=== PATIENT | female | born 1930 | race Caucasian/White ===

== ENCOUNTER 2016-05-25 01:34 | Inpatient (IN) | payer MEDICARE, OTHER ==
[~2016-05-25] VITALS: Ht 165.1 cm; Wt 62.8 kg
[2016-05-25] VITALS (38 sets, daily range): BP systolic 77–190; BP diastolic 31–87; PULSE 31–105; RESP 10–26; TEMP 98.2; Ht 165.1 cm; Wt 62.8 kg
[2016-05-25] MEDS ORDERED: SOD CHLORIDE 0.9% 500 ML IV STA (01:37)
[2016-05-25] MEDS ORDERED: ONDANSETRON 4 MG INJ IV STA (02:15)
[2016-05-25] MEDS ORDERED: morphine 4 MG/ML VIAL IV STA (02:15)
[2016-05-25 02:30] LABS: EOSINOPHILS # 0.1 10^3/ul (0.0-0.5); INR 0.97; PROTIME 12.9 Sec (12.2-14.2); RED CELL DISTRIBUTION WIDTH 14.8 % (11.5-14.5); UNCORRECTED WBC 8.6 10^3/ul (4.8-10.8); WHITE BLOOD COUNT 8.6 10^3/ul (4.8-10.8)
[2016-05-25 02:31] LABS: ALBUMIN 3.4 g/dl (3.3-4.9); POTASSIUM 5.6 mmol/L (3.5-5.1)
[2016-05-25 02:33] LABS: CREATININE 1.26 mg/dl (0.44-1.00)
[2016-05-25 02:34] LABS: ALBUMIN/GLOBULIN RATIO 1.25; BASOPHIL # 0.1 10^3/ul (0.0-0.1); BASOPHILS % 0.9 % (0.0-2.0); BILIRUBIN,INDIRECT 0.1 mg/dl (0-1.1); BILIRUBIN,TOTAL 0.1 mg/dl (0.2-1.3); CONDITION 1; EOSINOPHILS % 1.5 % (0.0-7.0); HEMATOCRIT 34.6 % (37.0-47.0); HEMOGLOBIN 11.6 g/dl (12.0-16.0); LH ANALYZER COMMENTS 1; LYMPHOCYTES # 2.3 10^3/ul (0.8-2.9); LYMPHOCYTES % 26.8 % (15.0-51.0); MEAN CORPUSCULAR HEMOGLOBIN 32.2 pg (29.0-33.0); MEAN CORPUSCULAR HGB CONC 33.6 g/dl (32.0-37.0); MEAN CORPUSCULAR VOLUME 95.7 fl (82.0-101.0); MONOCYTE # 0.6 10^3/ul (0.3-0.9); MONOCYTES % 7.3 % (0.0-11.0); NEUTROPHIL # 5.5 10^3/ul (1.6-7.5); NEUTROPHILS % 63.5 % (39.0-77.0); PLATELET COUNT 241 10^3/UL (140-440); RED BLOOD COUNT 3.61 10^6/ul (4.20-5.40); TOTAL PROTEIN 6.1 g/dl (6.1-8.1)
[2016-05-25 02:35] LABS: CALCIUM 9.4 mg/dl (8.4-10.2)
--- NOTE | 2016-05-25 02:40 | RADRPT ---
PROCEDURE: XR Chest. CLINICAL INDICATION: Chest pain TECHNIQUE: Single AP portable chest COMPARISON: None. FINDINGS: The cardiomediastinal silhouette is within normal limits of size . Dual chamber left chest pacemaker in place. Elevation of the right hemidiaphragm. Atherosclerotic calcification of the aortic arch. Mild vascular congestion. .The lungs are otherwise clear without pleural effusion or focal consoli dation. No pneumothorax. The osseous structures and soft tissues are unremarkable. IMPRESSION: 1. Mild vascular congestion. No pleural effusion or focal consolidation. 2. Atherosclerotic calcification of the aorta. RPTAT:AAJJ Physician Win Date Time Electronically viewed and signed by Physician Win on 05/25/2016 02:39 FRANCIE/
[2016-05-25 02:46] LABS: TROPONIN-I 0.038 ng/ml (0.00-0.12)
[2016-05-25] MEDS ORDERED: ATROPINE 1 MG/10 ML SYRINGE ONE (03:00)
[2016-05-25] MEDS ORDERED: ATROPINE 0.4 MG INJ IV ONE (03:00)
[2016-05-25] MEDS ORDERED: DOPamine-D5W 1.6 MG/ML 250 ML ONE (03:13)
[2016-05-25] MEDS ORDERED: ACETAMINOPHEN 650 MG SUPP PR PRN (03:30)
[2016-05-25] MEDS ORDERED: DOPamine-D5W 1.6 MG/ML 250 ML IV SCH (03:30)
[2016-05-25] MEDS ORDERED: ATROPINE 0.4 MG INJ IV PRN (03:30)
[2016-05-25] MEDS ORDERED: ONDANSETRON 4 MG INJ IV PRN ×2 (03:30→13:30)
[2016-05-25] MEDS ORDERED: ATROPINE 1 MG/10 ML SYRINGE IV PRN (03:30)
[2016-05-25] MEDS ORDERED: ALBUTEROL 0.5% (NEB) 2.5 MG/0.5 ML AMP NEB PRN (03:30)
[2016-05-25] MEDS ORDERED: IPRATROPIUM (NEB) 0.5 MG/2.5 ML AMP NEB PRN (03:30)
--- NOTE | 2016-05-25 03:43 | ERA ---
ER Documentation Chief Complaint Date/Time DATE: 05/25/16 TIME: 03:41 Chief Complaint BRADYCARDIC, PACEMAKER, VENTRICULAR PACED. HPI This is an 85-year-old female who comes in with bradycardia. Patient felt dizzy but had no syncopal episode. No chest bone. No other current complaints. Patient herself is a very limited historian. History is per family. Patient is currently residing in a post acute rehab for a fracture. ROS All systems reviewed and are negative except as per history of present illness. Allergies Allergies: Coded Allergies: No Known Allergy (Unverified , 05/25/16) PMhx/Soc History of Surgery: Yes (HIP REPLACEMENT) Anesthesia Reaction: No Hx Neurological Disorder: No Hx Respiratory Disorders: No Hx Cardiac Disorders: Yes (HTN) Hx Psychiatric Problems: No Hx Miscellaneous Medical Probl: Yes (ARTHRITIS, DIABETES MELLITUS) Hx Alcohol Use: No Hx Substance Use: No Hx Tobacco Use: No Smoking Status: Unknown if ever smoked Physical Exam Vitals Vital Signs Date Time Temp Pulse Resp B/P Pulse Ox O2 Delivery O2 Flow Rate FiO2 05/25/16 03:13 98.2 32 13 102/53 100 Nasal Cannula 05/25/16 01:42 Nasal Cannula 1 05/25/16 01:42 98.2 49 13 111/85 100 Physical Exam Const: [] Head: Atraumatic Eyes: Normal Conjunctiva ENT: Normal External Ears, Nose and Mouth. Neck: Full range of motion..~ No meningismus. Resp: Clear to auscultation bilaterally Cardio: Regular rate and rhythm, no murmurs Abd: Soft, non tender, non distended. Normal bowel sounds Skin: No petechiae or rashes Back: No midline or flank tenderness Ext: No cyanosis, or edema Neur: Awake and alert Psych: Normal Mood and Affect Result Diagram: 05/25/1614605/25/16146 Results 24 hrs Laboratory Tests Test 05/25/16 01:47 Activated Partial Thromboplast Time 25.0Sec Alanine Aminotransferase (ALT/SGPT) 23IU/L Albumin 3.4g/dl Albumin/Globulin Ratio 1.25 Alkaline Phosphatase 45IU/L Anion Gap 18 Aspartate Amino Transf (AST/SGOT) 16IU/L B-Type Natriuretic Peptide 2680PG/ML Basophils # 0.110^3/ul Basophils % 0.9% Blood Morphology Comment Blood Urea Nitrogen 39mg/dl Calcium Level 9.4mg/dl Carbon Dioxide Level 23mmol/L Chloride Level 99mmol/L Creatinine 1.26mg/dl Direct Bilirubin 0.00mg/dl Eosinophils # 0.110^3/ul Eosinophils % 1.5% Globulin 2.70g/dl Glucose Level 218mg/dl Hematocrit 34.6% Hemoglobin 11.6g/dl INR International Normalized Ratio 0.97 Indirect Bilirubin 0.1mg/dl Lymphocytes # 2.310^3/ul Lymphocytes % 26.8% Mean Corpuscular Hemoglobin 32.2pg Mean Corpuscular Hemoglobin Concent 33.6g/dl Mean Corpuscular Volume 95.7fl Mean Platelet Volume 9.0fl Monocytes # 0.610^3/ul Monocytes % 7.3% Neutrophils # 5.510^3/ul Neutrophils % 63.5% Nucleated Red Blood Cells # 0.010^3/ul Nucleated Red Blood Cells % 0.0/100WBC Platelet Count 18509^3/UL Potassium Level 5.6mmol/L Prothrombin Time 12.9Sec Prothrombin Time Ratio 1.0 Red Blood Count 3.6110^6/ul Red Cell Distribution Width 14.8% Sodium Level 134mmol/L Total Bilirubin 0.1mg/dl Total Protein 6.1g/dl Troponin I 0.038ng/ml White Blood Count 8.610^3/ul Current Medications Medications (Trade) Dose Ordered Sig/Zara Route PRN Reason Start Time Stop Time Status Last Admin Dose Admin Sodium Chloride (NS) 500 ml @ 500 mls/hr Q1H STAT IV 05/25/16 01:37 05/25/16 02:36 DC 05/25/16 02:01 Morphine Sulfate (morphine) 4 mg ONCE STAT IV 05/25/16 02:15 05/25/16 02:16 DC 05/25/16 02:22 Ondansetron HCl (Zofran Inj) 4 mg ONCE STAT IV 05/25/16 02:15 05/25/16 02:16 DC 05/25/16 02:21 Atropine Sulfate (Atropine) 0.4 mg ONCE ONCE IV 05/25/16 03:00 05/25/16 03:01 DC 05/25/16 03:01 Atropine Sulfate 1 mg 1 mg STK-MED ONCE .ROUTE 05/25/16 03:00 05/25/16 03:01 DC Dopamine HCl/ Dextrose 250 ml @ 4.432 mls/ hr TITRATE IV 05/25/16 03:30 Dopamine HCl/ Dextrose 250 ml @ ud STK-MED ONCE .ROUTE 05/25/16 03:13 05/25/16 03:14 DC Dextrose/Sodium Chloride (D5-1/2ns) 1,000 ml @ 75 mls/hr [id number] IV 05/25/16 03:16 Ondansetron HCl (Zofran Inj) 4 mg Q6H PRN IV NAUSEA AND/OR VOMITING 05/25/16 03:30 Albuterol (Proventil 0.5% (Neb)) 2.5 mg Q2H RESP THERAPY PRN NEB SHORTNESS OF BREATH 05/25/16 03:30 Ipratropium [place] (Atrovent 0.02% (Neb)) 0.5 mg Q2H RESP THERAPY PRN NEB SHORTNESS OF BREATH 05/25/16 03:30 Acetaminophen (Tylenol Supp) 650 mg Q4H PRN [place] PAIN LEVEL 1-3 OR FEVER 05/25/16 03:30 Famotidine (Pepcid Iv) 20 mg Q12 IV 05/25/16 09:00 UNV Heparin Sodium (Porcine) (Heparin (5000 Units/0.5 ml)) 5,000 unit Q12 SC 05/25/16 09:00 Atropine Sulfate (Atropine) 0.4 mg ONCE PRN IV bradycardia 05/25/16 03:30 UNV Famotidine (Pepcid Iv) 20 mg DAILY IV 05/25/16 09:00 Atropine Sulfate (Atropine (Syringe)) 0.4 mg ONCE PRN IV bradycardia 05/25/16 03:30 05/25/16 09:00 Procedures/MDM EKG: Rate/Rhythm: Ventricularly paced bradycardia at 30 bpm QRS, ST, T-waves: No changes consistent w/ acute ischemia Impression: Ventricularly paced bradycardia Chest X-ray 1V Interpreted by me: Soft Tissue: No acute abnormalities Bones: No acute abnormalities Mediastinum/Cardiac Silhouette/Lungs: No acute abnormalities Medical decision makin-year-old female with symptomatic bradycardia. Patient given dose of aspirin with good response. At this point patient placed on peripheral dopamine drip. Patient will be admitted to intensive care to hospitalist. Dr. Vahdat has been consulted for cardiology. Unfortunately family does not know what kind the pacemaker was placed and the patient and they do not have the pacemaker card or information regarding the pacemaker. At this time we are trying to procure records from [facility]. Critical Care: Time: 45 minutes Treatments/Evaluations: Close monitoring and treatment of unstable vital signs, cardiorespiratory, and neurologic status, while maintaining tight balance of fluid, respiratory, and cardiac interventions. Departure Diagnosis: Primary Impression: Bradycardia Condition: Critical JAIME SIDDQIUI May 25, 2016 03:43
[2016-05-25] MEDS: DEXTROSE 5%-0.45% NACL 1,000 ML IV SCH ×2 (05:28→16:36)
--- NOTE | 2016-05-25 06:58 | HP ---
DATE OF ADMISSION: 05/25/2016 CHIEF COMPLAINT: Bradycardia. HISTORY OF PRESENT ILLNESS: The patient is an 85-year-old female with a history of diabetes, hypert ension, arthritis, dyslipidemia, hypothyroidism, dementia, and pacemaker who was sent from [facility] for bradycardia. When EMS arrived, and EKG was done which shows a ventricular paced rhythm with a rate of 30. When she arrived to the ER, her heart rate was documented to be 49 but pavon s been as low as 32. The rest of her vitals were within normal limits including her blood pressure which has been around 110/80s. The patient is mainly Farsi-speaking, and currently she is sleepy bu t arousable and appears somehow weak but not in any acute distress. In the ER, she was given normal saline IV fluid, 0.4 mg of atropine, and has been started on dopamine. Dr. Nolasco, the cardiologis t, has been consulted by the ER physician. She is awaiting ICU admission. Unfortunately the only k nown information about her pacemaker is the fact that it is dual-chamber based on the chest x-ray. Otherwise, I am not able to see any additional information from the chest x-ray. Also, the patient is not able to provide additional information about pacemaker. REVIEW OF SYSTEMS: Negative except as mentioned in HPI. PAST MEDICAL HISTORY: As per HPI. PAST SURGICAL HISTORY: As per HPI. SOCIAL HISTORY: No reported history of tobacco, alcohol, or illicit drug use. ALLERGIES: NO KNOWN DRUG ALLERGIES. MEDICATIONS: At [facility] is as follows 1. Aspirin. 2. Donepezil. 3. Lexapro. 4. Metformin. 5. Oxybutynin. 6. Zocor. 7. Synthroid 8. Losartan. PHYSICAL EXAMINATION: VITAL SIGNS: Blood pressure 102/53, heart rate 32, respiratory rate 13, temperature 98.2, oxygen sa turation 100%. GENERAL: Sleepy and somehow weak appearing but arousable, in no acute distress. HEENT: No obvious head deformity. Pupils are reactive to light. CARDIOVASCULAR: Bradycardic with regular rhythm. LUNGS: Clear anteriorly. ABDOMEN: Soft. No grimaces noted on palpation. Positive bowel sounds. EXTREMITIES: No edema. LABORATORY: Sodium 134, potassium 5.6, BUN 39, creatinine 1.26, hemoglobin 11.6. BNP 2680. First troponin 0.038. IMAGING: Chest x-ray shows mild vascular congestion, dual-chamber left chest pacemaker in place. N o pleural effusion or focal consolidation. IMPRESSION 1. Symptomatic bradycardia. 2. History of hypertension. 3. History of type 2 diabetes. 4. History of dyslipidemia. 5. History of hypothyroidism. 6. History of dementia. 7. Hyperkalemia. 8. Mild hyponatremia. 9. Congestive heart failure. 10. Elevated creatinine, likely acute on chronic kidney disease. PLAN: Admit to ICU. We will continue dopamine. We will provide atropine as needed. She will be e valuated by cardiology. We will correct electrolytes as needed. We will monitor her blood pressure closely. External pacer pads to be in place. We will check her thyroid profile, A1c, and fasting lipids in the morning. Further workup and management per clinical course. Total critical time is about 40 minutes. Dictated By: JAIME WALLIS/GUANAKITO Conf#: [id number] DID#: [id number]
[2016-05-25 07:09] LABS: BASOPHILS % 0.4 % (0.0-2.0); EOSINOPHILS % 0.2 % (0.0-7.0); HEMATOCRIT 34.9 % (37.0-47.0); HEMOGLOBIN 11.7 g/dl (12.0-16.0); LYMPHOCYTES # 1.5 10^3/ul (0.8-2.9); LYMPHOCYTES % 12.6 % (15.0-51.0); MEAN CORPUSCULAR HEMOGLOBIN 32.2 pg (29.0-33.0); MEAN CORPUSCULAR HGB CONC 33.5 g/dl (32.0-37.0); MEAN PLATELET VOLUME 8.5 fl (7.4-10.4); MONOCYTE # 0.4 10^3/ul (0.3-0.9); MONOCYTES % 3.3 % (0.0-11.0); NEUTROPHIL # 10.3 10^3/ul (1.6-7.5); NEUTROPHILS % 83.5 % (39.0-77.0); PLATELET COUNT 268 10^3/UL (140-440); RED BLOOD COUNT 3.64 10^6/ul (4.20-5.40); RED CELL DISTRIBUTION WIDTH 14.8 % (11.5-14.5); UNCORRECTED WBC 12.3 10^3/ul (4.8-10.8); WHITE BLOOD COUNT 12.3 10^3/ul (4.8-10.8)
[2016-05-25 07:21] LABS: CONDITION 1; LH ANALYZER COMMENTS 1
[2016-05-25 07:41] LABS: CREATININE 1.22 mg/dl (0.44-1.00)
[2016-05-25 07:42] LABS: CALCIUM 8.7 mg/dl (8.4-10.2)
[2016-05-25 07:46] LABS: POTASSIUM 6.2 mmol/L (3.5-5.1)
[2016-05-25] MEDS ORDERED: NA POLYST SULFON 15 GM/60 ML BTL PO ONE (08:00)
[2016-05-25] MEDS ORDERED: NA POLYST SULFON 15 GM/60 ML BTL ONE (08:11)
[2016-05-25] MEDS ORDERED: INSULIN REGULAR, HUMAN 100 UNIT/1 ML 3ML VIAL IV ONE (08:30)
[2016-05-25] MEDS ORDERED: GLUCOSE GEL 15 GRAM TUBE PO PRN ×2 (09:00)
[2016-05-25] MEDS ORDERED: DEXTROSE 50% 50 ML SYRINGE IV PRN ×2 (09:00)
[2016-05-25] MEDS ORDERED: HEPARIN 5,000 UNIT/0.5 ML SYG SC SCH (09:00)
[2016-05-25] MEDS ORDERED: FAMOTIDINE 20 MG INJ IV SCH (09:00)
[2016-05-25] MEDS ORDERED: GLUCOSE GEL 15 GRAM TUBE BUCCAL PRN (09:00)
[2016-05-25] MEDS ORDERED: GLUCAGON 1 MG INJ IM PRN (09:00)
[2016-05-25] MEDS ORDERED: CALCIUM GLUCONATE 10% 2 GM in SOD CHLORIDE 0.9% 100 ML IVPB ONE (09:30)
[2016-05-25] MEDS: FAMOTIDINE 20 MG INJ IV SCH (09:30)
[2016-05-25] MEDS ORDERED: NA BICARBONATE 8.4% 50 ML SYG IV ONE (10:30)
[2016-05-25] MEDS ORDERED: NA BICARBONATE 8.4% 50 ML SYG ONE (10:48)
[2016-05-25] MEDS ORDERED: LIDOCAINE 1% (STERILE-PAK) 30 ML INJ ONE (11:58)
[2016-05-25] MEDS ORDERED: LIDOCAINE 1%/EPI 30 ML INJ ONE (11:58)
[2016-05-25] MEDS ORDERED: POLYMYXIN/BACITRACIN 1L IRRIG ONE (11:59)
--- NOTE | 2016-05-25 12:17 | RADRPT ---
Echocardiogram Report Patient Name: LEONIDES MARCOS Gender: Female Date: 1930 Study Date: 25-May-2016 Public Relations Representative: Remedios Ramirez RDCS Location: 108 Ref. Physician: JAIME MENSAH Quality: Technically Difficult Study Procedures: Transthoracic echocardiogram with complete 2D, M-Mode, and doppler examination. Indications: Bradycardia. 2D/M Mode Doppler Measurement Value Normal Ranges Measurement Value Normal Ranges LVIDd 2D 4.2 3.5 - 5.6 cm AV Peak Musa 2.0 m/sec LVIDs 2D 2.3 2.1 - 4.1 cm AV Peak PG 16.0 mmHg LVPWd 2D 0.8 0.6 - 1.1 cm LVOT Peak Musa 1.2 m/sec IVSd 2D 0.7 0.6 - 1.1 cm LVOT Peak PG 5.7 mmHg AoR Diam 2D 2.7 2.0 - 3.7 cm MV E Peak Musa 1.5 m/sec EDV 2D 80.8 cm3 MV A Peak Musa 0.6 m/sec ESV 2D 12.5 cm3 MV E/A 2.6 LA Dimen 2D 3.9 2.3 - 4.0 cm MV Decel Time 138 msec MV Decel Ray 11 MV E/A 2.6 TR Peak Musa 2.6 m/sec TR Peak PG 27.4 mmHg RVSP 42.0 mmHg Findings Left Ventricle: Normal left ventricular systolic function. Normal left ventricular cavity size. Normal left ventricular wall thickness. Ejection fraction is visually estimated at 65 %. Right Ventricle: Pacemaker right heart. Left Atrium: The left atrium is normal in size. Right Atrium: The right atrium is normal in size. Linear artifact in right atrium suggestive of pacer lead. Mitral Valve: Mitral valve leaflets appear mildly thickened. Mild mitral annular calcification. Mild mitral valve regurgitation. Aortic Valve: Aortic sclerosis without stenosis. Aortic cusps appear mildly calcified. Tricuspid Valve: Estimated peak PA systolic pressure 42 mmHg. There is mild to moderate tricuspid regurgitation. Pulmonic Valve: Normal pulmonic valve appearance. Pericardium: Normal pericardium with no significant pericardial effusion. Aorta: Normal aortic root. IVC: Normal size and no respiratory collapse consistent with elevated right atrial pressure. Conclusions 1.Normal left ventricular systolic function. Normal left ventricular cavity size. Normal left ventricular wall thickness. Ejection fraction is visually estimated at 65 %. 2.The right atrium is normal in size. Linear artifact in right atrium suggestive of pacer lead. 3.Mitral valve leaflets appear mildly thickened. Mild mitral annular calcification. Mild mitral valve regurgitation. 4.Aortic sclerosis without stenosis. Aortic cusps appear mildly calcified. 5.Estimated peak PA systolic pressure 42 mmHg. There is mild to moderate tricuspid regurgitation. Electronically Signed By: Quinn Nolasco 25-May-2016 12:17:19 -0800 Patient Name: LEONIDES MARCSO Study Date: 25-May-[id number]
[2016-05-25] MEDS ORDERED: PROPOFOL 20 ML ONE (12:51)
--- NOTE | 2016-05-25 13:23 | CONS ---
DATE OF ADMISSION: 05/25/2016 DATE OF CONSULTATION: 05/25/[address] López. REASON FOR CONSULTATION: Bradycardia. CHIEF COMPLAINT: Bradycardia. HISTORY OF PRESENT ILLNESS: Thank you for this referral. History obtained from the patient, sandy gu with her daughter, review of the chart, discussion with multiple physicians, including from the emergency room and staff. This is a pleasant 85-year-old female with history of what appears to be complete heart block status permanent pacemaker, many, many years ago. Last change apparently was 4 to 5 years ago, has not had a regular followup apparently for her pacemaker. The patient currentl y is in rehabilitation ____ marked bradycardia. She was noted to be as low as 30. Pacemaker was no t capturing appropriately. Atropine was given, and apparently heart rate improved. She has been tr ansferred to ICU. Pacemaker was interrogated this morning, was personally reviewed. Pacemaker appe ars to be completely at this point with no communication and no interrogation can be done, even . The patient denies any chest pain or pressure. Has poor memory and also poor hearing. There is no kristen syncope noted. The patient has been weak and has been having bouts of bradycardia as above . PAST MEDICAL HISTORY: History of hypertension, diabetes, dyslipidemia, hypothyroidism, dementia, co mplete heart block, status post permanent pacemaker with a [employer] pacemaker. SOCIAL HISTORY: The patient with no tobacco or alcohol or drug abuse. Lives in rehabilitation now. ALLERGIES: NO REPORTED ALLERGIES. MEDICATIONS: At home or at [facility] include: 1. Aspirin. 2. Donepezil. 3. Lexapro. 4. Metformin. 5. Oxybutynin. 6. Zocor. 7. Synthroid. 8. Losartan. FAMILY HISTORY: No reported early coronary artery disease. REVIEW OF SYSTEMS: As above-mentioned, patient does not walk much and has not had good hearing. PHYSICAL EXAMINATION: VITAL SIGNS: Temperature 96.8, heart rate of 38, blood pressure 150/30, respiratory rate of 15. HEENT: Normocephalic, atraumatic. Pupils are equal. CHEST: Status post left-sided permanent pacemaker. CARDIOVASCULAR: Bradycardic, systolic murmur. PULMONARY: With no wheezes anteriorly. GASTROINTESTINAL: Soft, nontender. EXTREMITIES: No significant edema. NEUROLOGIC: Awake, responds appropriately to person and place. PSYCHIATRIC: Appears to be calm and pleasant. LABORATORY: WBC of 12.3, hemoglobin 11.7, platelets 268. Sodium 132, potassium 5.6 and is followed by 6.2, BUN of 40, creatinine 1.22, glucose of 376. TSH is 0.37 and free T4 of 1.62. Chest x-ray was personally reviewed, which showed status post dual chamber permanent pacing, a mild vascular con gestion. Echocardiogram was personally reviewed, which showed normal LV size and systolic function. DIAGNOSTIC DATA: EKG was personally reviewed, showed normal sinus rhythm with complete AV dissociat ion, ventricular demand pacemaker and a very slow rate. ASSESSMENT AND PLAN: 1. Complete heart block with marked bradycardia. 2. Status post permanent pacemaker with either pacemaker malfunction, loss of capture or complete d epletion of the battery or both. 3. Hypertension. 4. Diabetes. 5. History of hypothyroidism 6. History of dementia. RECOMMENDATIONS: Patient has been placed on dopamine with no significant response in the heart rate . Blood pressure currently has been stable. I cannot communicate with the pacemaker because the ttery is so depleted, does not communicate with the device outside. The patient will be taken to e operating room for pacemaker generator change as long as the leads are working or if the leads are not working, we have to perform the new pacemaker placement. ____was discussed with the patient an d her daughter including the risks of renal infection, vascular complication, bleeding complication, pneumothorax, hemothorax, RI, stroke, arrhythmia, anesthesia related complications, etc., discussed with them. They have consented to procedure. Patient will be taken to the OR as soon as the team is ready. Dictated By: RAQUEL PRATT MD AV/GUANAKITO Conf#: [id number] DID#: [id number] CC: JAIME LÓPEZ MD;*EndCC*
[2016-05-25] MEDS ORDERED: FENTAnyl 50 MCG/ML VIAL IV PRN (13:30)
[2016-05-25] MEDS ORDERED: morphine 2 MG INJ IV PRN (14:00)
[2016-05-25] MEDS ORDERED: ACETAMINOPHEN 325 MG TAB PO PRN (14:00)
--- NOTE | 2016-05-25 14:07 | SP ---
DATE OF PROCEDURE: 05/25/2016 NAME OF PROCEDURE: Pacemaker generator change. FUNCTIONAL CONSULTANT: Raquel Nolasco MD CLINICAL INDICATIONS: This is an 85-year-old female with complete heart block status post permanent pacemaker, who was noted to have complete depletion of the pacemaker battery end of life. The nae ent was bradycardic and was recommended to undergo urgent pacemaker generator change. DESCRIPTION OF PROCEDURE: Written informed consent was discussed with the patient and the family, t he patient taken to the OR and placed in supine position. Left chest was prepped and draped in ster ile fashion. The patient underwent anesthesia by anesthesiologist. Left chest area was anesthetize d with 1% lidocaine with epinephrine. A 3 cm incision was made over the previous scar. Blunt disse ction was carried out. The pacemaker was identified, isolated and removed. The RV lead was removed and quickly placed in the new device. The pacemaker lead was interrogated through the device, it a ppeared to be functioning appropriately. Our A-lead was discontinued and a threshold was checked. It was connected to the new device. The pocket was irrigated with antibiotic solution. The device was placed into the pocket and the irrigation was done again with antibiotic solution. The wound wa s closed with 1 layer of 2-0 Vicryl, 2 layers of 3-0 Vicryl, Steri-Strips were applied. Pressure wa s applied. Patient was without complication. The patient is transferred to recovery in stable cond ition. COMPLICATIONS: None. Following information of device: The pacemaker itself is a [employer] [address] 2240 Pacemaker. RA-lead is an Oscor lead. Implant date apparently is February,. RV lead is Oscor lead, implanted in 1994. P-wave amplitude is 1.2, threshold 1.5 at 0.4 msec, impedance of 430. RV amplitude could not be checked because patient is dependent on it. Threshold is 1 at 4 millisecond pulse width, impedance of 390. The device was set at lower rate of 60, upper rate of 110. CONCLUSION: Successful pacemaker generator change. Dictated By: RAQUEL NOLASCO MD AV/GUANAKITO Conf#: [id number] DID#: [id number] CC: JAIME MENSAH MD;*EndCC*
--- NOTE | 2016-05-25 14:48 | RADRPT ---
Vent Rate: 80 bpm RR Interval: 0 msec RI Interval: 0 msec QRS Duration: 164 msec QT Interval: 490 msec QTC Interval: 565 msec P-R-T [place]: 63 - -74 - 88 degrees Electronic ventricular pacemaker Electronically Signed By: Chu Hansen [id number]
[2016-05-25] MEDS: CEFAZOLIN 1 GM/50 ML (PMX) 50 ML IVPB SCH ×2 (14:56→21:26)
[2016-05-25] MEDS: INSULIN ASPART [NOVOLOG] 3 ML PEN SC SCH ×3 (17:34→21:22)
[2016-05-25] MEDS ORDERED: INSULIN GLARGINE [LANtus] 3 ML PEN SC SCH (20:00)
[2016-05-25] MEDS ORDERED: INSULIN GLARGINE [LANtus] 3 ML PEN SC ONE (21:30)
[2016-05-26] VITALS (12 sets, daily range): BP systolic 93–156; BP diastolic 39–87; PULSE 67–97; RESP 15–21
[2016-05-26] MEDS ORDERED: ACCUCHECK XX SCH (02:00)
[2016-05-26] MEDS: CEFAZOLIN 1 GM/50 ML (PMX) 50 ML IVPB SCH (06:32)
[2016-05-26 07:10] LABS: BASOPHILS % 0.2 % (0.0-2.0); EOSINOPHILS % 0.2 % (0.0-7.0); HEMATOCRIT 27.7 % (37.0-47.0); HEMOGLOBIN 9.5 g/dl (12.0-16.0); LYMPHOCYTES # 1.4 10^3/ul (0.8-2.9); LYMPHOCYTES % 17.4 % (15.0-51.0); MEAN CORPUSCULAR HEMOGLOBIN 32.6 pg (29.0-33.0); MEAN CORPUSCULAR HGB CONC 34.1 g/dl (32.0-37.0); MEAN CORPUSCULAR VOLUME 95.5 fl (82.0-101.0); MEAN PLATELET VOLUME 8.1 fl (7.4-10.4); MONOCYTE # 0.7 10^3/ul (0.3-0.9); MONOCYTES % 8.3 % (0.0-11.0); NEUTROPHILS % 73.9 % (39.0-77.0); PLATELET COUNT 211 10^3/UL (140-440); RED CELL DISTRIBUTION WIDTH 14.7 % (11.5-14.5); UNCORRECTED WBC 8.1 10^3/ul (4.8-10.8); WHITE BLOOD COUNT 8.1 10^3/ul (4.8-10.8)
[2016-05-26 07:15] LABS: POTASSIUM 4.1 mmol/L (3.5-5.1)
[2016-05-26 07:17] LABS: CREATININE 0.73 mg/dl (0.44-1.00)
[2016-05-26 07:18] LABS: CALCIUM 9.1 mg/dl (8.4-10.2); MAGNESIUM 1.7 mg/dl (1.7-2.5)
[2016-05-26 07:25] LABS: CONDITION 1; LH ANALYZER COMMENTS 1
[2016-05-26] MEDS: INSULIN ASPART [NOVOLOG] 3 ML PEN SC SCH ×4 (07:55→12:15)
[2016-05-26] MEDS ORDERED: INSULIN GLARGINE [LANtus] 3 ML PEN SC SCH ×2 (08:00→20:00)
[2016-05-26] MEDS: FAMOTIDINE 20 MG INJ IV SCH (08:27)
--- NOTE | 2016-05-26 08:50 | PN ---
DATE: 05/26/2016 CARDIOLOGY FOLLOWUP SUBJECTIVE: The patient underwent successful pacemaker generator change. Overnight has been pacing almost 100%. The patient is still confused. Had taken off her Steri-Strips from her pacer site. Denies any pain to me, but again, as mentioned, she is confused. MEDICATIONS: Reviewed. PHYSICAL EXAMINATION: VITAL SIGNS: Temperature 99.1, heart rate of 77, blood pressure 147/65, respiratory rate of 20, sat urating 98%. HEENT: Normocephalic, atraumatic. Pupils are equal. CARDIOVASCULAR: Regular rate and rhythm, systolic murmur. PULMONARY: No wheezes, no rhonchi. GASTROINTESTINAL: Soft, nontender. CHEST: Status post permanent pacemaker. No bleeding, no hematoma. EXTREMITIES: Trivial edema. NEUROLOGIC: Awake and alert, oriented to person only. PSYCHIATRIC: Appears to be agitated and anxious. LABORATORY: Sodium 139, potassium 4.1, BUN of 29, creatinine 0.73, glucose of 98. WBC of 8.1, hemo globin of 9.5, platelets of 211. ASSESSMENT AND PLAN: 1. Complete heart block. 2. Permanent pacemaker end of life, status post permanent pacemaker generator change. 3. Hypertension . 4. Severe hyperkalemia, improved. 5. Encephalopathy and dementia. 6. Diabetes. 7. History of thyroid disorder. RECOMMENDATIONS: Steri-Strip was applied to the pacemaker again. Keep the wound clean and dry. Th e patient to follow with me in about 1 to 2 weeks for wound check and pacemaker check. Give the pat ient empiric antibiotic for the next 3 days with Keflex. Dictated By: RAQUEL PRATT MD AV/NTS Conf#: [id number] DID#: [id number] CC: JAIME MENSAH MD;*EndCC*
[2016-05-26] MEDS: CEPHALEXIN 500 MG CAP PO SCH ×2 (10:54→14:43)
[2016-05-26] MEDS ORDERED: CEPH500C PO (11:13)
--- NOTE | 2016-05-26 17:16 | DS ---
DATE OF ADMISSION: 05/25/2016 DATE OF DISCHARGE: 05/26/2016 DISCHARGE DIAGNOSES: 1. Complete heart block with history of permanent pacemaker with pacemaker generator malfunction st atus post successful pacemaker generator change. The patient is cleared for discharge per cardiolog y. 2. Debility secondary to dementia and spinal compression fractures. The patient is being discharge d to continue rehabilitation at previous rehab facility. 3. Hypertension. Continue home meds. 4. Diabetes. Continue home medications. HOSPITAL COURSE: The patient is an 85-year-old female with a history of diabetes, hypertension, art hritis, dyslipidemia, hypothyroidism, and dementia as well as lumbar compression fractures with ez lity and difficulty ambulating. The patient resides at a rehab facility. The patient has a history of pacemaker placement secondary to heart block and comes in with bradycardia. The patient was see n by building contractor, Dr. Nolasco. The patient had a pacemaker generator malfunction, and the pacemaker generator was changed. The patient was doing well after the generator change. The patient was chidi ared for discharge by cardiology with recommendations to give Keflex for several days for infection prophylaxis. On the day of discharge, the patient's vitals, labs, and physical exam were stable. S he had no acute complaints. Her questions were answered. The patient once again was cleared for ravi farooq per cardiology. CONDITION ON DISCHARGE: Stable. DISPOSITION: To rehabilitation. MEDICATIONS: The patient is to continue usual home medications. The patient was given a prescripti on for Keflex 500 mg p.o. q. 8 hours for 3 days. FOLLOWUP: She is to follow up with her PCP in 1 to 2 weeks and with her other physicians as sched ed. Greater than 30 minutes was spent coordinating discharge of patient. Dictated By: DAKOTA MARQUEZ MD BS/NTS Conf#: [id number] DID#: [id number]
== END 2016-05-26 17:41 | DRG 259 ==
LOC: EDSEX 01:34 → E/R 01:34 → ICU 03:23 → TEL 04:19
PROVIDERS: ADMIT Internal Medicine; ATTEND Internal Medicine
PROC: 0JH606Z Insertion of Pacemaker, Dual Chamber into Chest Subcutaneous Tissue and Fascia, Open Approach (ICD-10-PCS; 2016-05-25)
PROC: 0JPT0PZ Removal of Cardiac Rhythm Related Device from Trunk Subcutaneous Tissue and Fascia, Open Approach (ICD-10-PCS; principal; 2016-05-25 12:00)
DX: I44.2 Atrioventricular block, complete (principal); T82.111A Breakdown (mechanical) of cardiac pulse generator (battery), initial encounter; F03.90 Unspecified dementia, unspecified severity, without behavioral disturbance, psychotic disturbance, mood disturbance, and anxiety; E11.9 Type 2 diabetes mellitus without complications; I10 Essential (primary) hypertension; M48.57XS Collapsed vertebra, not elsewhere classified, lumbosacral region, sequela of fracture; Z79.84 Long term (current) use of oral hypoglycemic drugs
CPT/HCPCS: 36415; 71010; 80048; 80053; 82962; 83036; 83735; 83880; 84132; 84439; 84443; 84484; 85025; 85610; 85730; 87081; 88300; 93005; 93306; 96361; 96374; 96375; J0461; J0610; J0690; J1265; J1815; J2270; J2405; J7040; J7042

== ENCOUNTER 2018-11-26 08:50 | Inpatient (IN) | payer MEDICARE, OTHER ==
[~2018-11-26] VITALS: Ht 157.5 cm; Wt 58.0 kg
[~2018-11-26 08:50] MED LIST: ACET-2047 PO; AMLO5TAB4 PO; APIX2.5T PO; ASPI81TA52 PO; BALS60OI TOP; BISA10SU55 RC; CARV6.2579 PO; CEFU500T45 PO; CEPH500C PO; DEXL60CA2 PO; DONE10TA7 PO; ESCI20TA PO; INSU100I12 SQ; LANT3I SC; LAS20 PO; LEVO75TA65 PO; LOSA50TA14 PO; LOSA50TA2 PO; MAGN400O19 PO; MEMA10TA PO; METF500T24 PO; NA P133E10 RC; OXYB10TA6 PO; SIMV20TA PO; SPIR25TA PO
[2018-11-26] MEDS ORDERED: NITROGLYCERIN 2% 1 GM OINT PKT TD ONE (09:00)
[2018-11-26] MEDS ORDERED: FUROSEMIDE 40 MG INJ IV ONE (10:00)
[2018-11-26] MEDS ORDERED: ACETAMINOPHEN 325 MG TAB PO PRN (11:30)
[2018-11-26] MEDS ORDERED: ONDANSETRON 4 MG INJ IV PRN ×2 (11:30→14:00)
[2018-11-26 13:06] VITALS: Ht 157.5 cm; Wt 58.0 kg
[2018-11-26 13:09] VITALS: BP 142/72; PULSE 83; RESP 20
[2018-11-26] MEDS ORDERED: BISACODYL 10 MG SUPP PR PRN (14:00)
[2018-11-26] MEDS ORDERED: ZOLPIDEM 5 MG TAB PO PRN (14:00)
[2018-11-26] MEDS ORDERED: NACL 0.9% 3 ML SYG IV SCH (14:00)
[2018-11-26] MEDS ORDERED: morphine 2 MG INJ IV PRN (14:00)
[2018-11-26] MEDS ORDERED: HYDROCODONE/APAP (5/325) TAB PO PRN (14:00)
[2018-11-26] MEDS ORDERED: DEXTROSE 50% 50 ML SYRINGE IV PRN (15:00)
[2018-11-26] MEDS ORDERED: GLUCOSE GEL 15 GRAM TUBE BUCCAL PRN (15:00)
[2018-11-26] MEDS ORDERED: GLUCAGON 1 MG INJ IM PRN (15:00)
[2018-11-26] MEDS ORDERED: GLUCOSE GEL 15 GRAM TUBE PO PRN ×2 (15:00)
[2018-11-26 16:06] VITALS: BP 137/78; PULSE 87; RESP 18
[2018-11-26] MEDS: INSULIN ASPART [NOVOLOG] 3 ML PEN SC SCH ×2 (16:46→21:04)
[2018-11-26] MEDS ORDERED: INSULIN ASPART [NOVOLOG] 3 ML PEN SC SCH (18:00)
[2018-11-26] MEDS: FUROSEMIDE 20 MG INJ IV SCH (18:24)
[2018-11-26] MEDS: SPIRONOLACTONE 25 MG TAB PO SCH (18:24)
[2018-11-26 20:15] VITALS: BP 117/73; PULSE 110; RESP 17
[2018-11-26] MEDS: METOPROLOL (XL) 25 MG TAB PO SCH (20:56)
[2018-11-26] MEDS: APIXABAN 5 MG TABLET PO SCH (20:56)
[2018-11-26] MEDS: INSULIN GLARGINE [LANTus] (100 UNITS/ML) SYG SC SCH (21:04)
[2018-11-27 00:09] VITALS: BP 121/70; PULSE 79; RESP 17
[2018-11-27] MEDS ORDERED: ACCU-CHEK XX SCH (02:00)
[2018-11-27] MEDS: INSULIN ASPART [NOVOLOG] 3 ML PEN SC SCH ×6 (02:08→21:17)
[2018-11-27] MEDS: ACCU-CHEK XX SCH (02:08)
[2018-11-27 04:41] VITALS: BP 124/72; PULSE 76; RESP 17
[2018-11-27] MEDS: FUROSEMIDE 20 MG INJ IV SCH ×2 (05:29→17:23)
[2018-11-27 07:52] VITALS: BP 158/72; RESP 18
[2018-11-27] MEDS: METOPROLOL (XL) 25 MG TAB PO SCH ×2 (08:09→21:00)
[2018-11-27] MEDS: SPIRONOLACTONE 25 MG TAB PO SCH (08:10)
[2018-11-27] MEDS: MEMANTINE 10 MG TAB PO SCH (08:10)
[2018-11-27] MEDS: ESCITALOPRAM 10 MG TAB PO SCH (08:10)
[2018-11-27] MEDS: OXYBUTYNIN (XL) 5 MG TAB PO SCH (08:10)
[2018-11-27] MEDS: DONEPEZIL 10 MG TAB PO SCH (08:10)
[2018-11-27] MEDS: APIXABAN 5 MG TABLET PO SCH ×2 (08:11→21:00)
[2018-11-27] MEDS: ASPIRIN (EC) 81 MG TAB PO SCH (08:11)
[2018-11-27] MEDS: LEVOTHYROXINE 75 MCG TAB PO SCH (08:11)
[2018-11-27] MEDS ORDERED: LOSARTAN 50 MG TAB PO SCH (09:00)
[2018-11-27] MEDS ORDERED: ENOXAPARIN 40 MG/0.4 ML SYG SC SCH (09:00)
[2018-11-27] MEDS ORDERED: AMLODIPINE 5 MG TAB PO SCH (09:00)
[2018-11-27] MEDS: ACETAMINOPHEN 325 MG TAB PO PRN (09:13)
[2018-11-27 11:06] VITALS: BP 156/66; RESP 18
[2018-11-27 15:10] VITALS: BP 166/78; PULSE 62; RESP 18
[2018-11-27 20:00] VITALS: BP 164/73; PULSE 60; RESP 18
[2018-11-27] MEDS: LOSARTAN 50 MG TAB PO SCH (21:00)
[2018-11-27] MEDS: INSULIN GLARGINE [LANTus] (100 UNITS/ML) SYG SC SCH (21:17)
[2018-11-28] VITALS (7 sets, daily range): BP systolic 128–170; BP diastolic 60–100; PULSE 57–96; RESP 18–20
[2018-11-28] MEDS: FUROSEMIDE 20 MG INJ IV SCH ×4 (00:39→21:29)
[2018-11-28] MEDS: INSULIN ASPART [NOVOLOG] 3 ML PEN SC SCH ×6 (01:01→20:58)
[2018-11-28] MEDS: ACCU-CHEK XX SCH (01:03)
[2018-11-28] MEDS: LEVOTHYROXINE 75 MCG TAB PO SCH ×2 (08:29→09:50)
[2018-11-28] MEDS: OXYBUTYNIN (XL) 5 MG TAB PO SCH ×2 (08:30→09:50)
[2018-11-28] MEDS: APIXABAN 5 MG TABLET PO SCH ×2 (08:30→09:50)
[2018-11-28] MEDS: SPIRONOLACTONE 25 MG TAB PO SCH ×2 (08:30→09:48)
[2018-11-28] MEDS: LOSARTAN 50 MG TAB PO SCH ×3 (08:30→20:54)
[2018-11-28] MEDS: DONEPEZIL 10 MG TAB PO SCH (08:30)
[2018-11-28] MEDS: MEMANTINE 10 MG TAB PO SCH (08:31)
[2018-11-28] MEDS: ESCITALOPRAM 10 MG TAB PO SCH (08:31)
[2018-11-28] MEDS: ASPIRIN (EC) 81 MG TAB PO SCH ×2 (08:31→09:49)
[2018-11-28] MEDS: METOPROLOL (XL) 25 MG TAB PO SCH ×3 (08:31→20:54)
[2018-11-28] MEDS ORDERED: MAGNESIUM SULFATE 4 GM/100 ML 100 ML IVPB ONE (09:30)
[2018-11-28] MEDS: POTASSIUM CHLORIDE 100 ML IVPB SCH ×2 (09:53→12:13)
[2018-11-28] MEDS: INSULIN GLARGINE [LANTus] (100 UNITS/ML) SYG SC SCH (20:58)
[2018-11-29 01:07] VITALS: PULSE 79
[2018-11-29] MEDS: INSULIN ASPART [NOVOLOG] 3 ML PEN SC SCH ×6 (01:31→21:15)
[2018-11-29] MEDS: ACCU-CHEK XX SCH (01:31)
[2018-11-29] MEDS ORDERED: MAGNESIUM SULFATE 1 GM/D5W 100 ML IVPB ONE (04:00)
[2018-11-29] MEDS ORDERED: POTASSIUM CHLORIDE 100 ML IVPB ONE ×3 (04:30→18:00)
[2018-11-29 04:48] VITALS: BP 151/75; PULSE 60; RESP 20
[2018-11-29] MEDS: FUROSEMIDE 20 MG INJ IV SCH ×3 (05:38→21:20)
[2018-11-29] MEDS: LEVOTHYROXINE 75 MCG TAB PO SCH (06:06)
[2018-11-29 08:11] VITALS: BP 152/69; PULSE 68; RESP 19
[2018-11-29] MEDS: POTASSIUM CHLORIDE 20 MEQ POWDER FOR ORAL SOLN PO SCH ×2 (08:41→20:37)
[2018-11-29] MEDS: METOPROLOL (XL) 50 MG TAB PO SCH ×2 (08:42→20:37)
[2018-11-29] MEDS: BALSAM PERU/CASTOR OIL 60 GM TUBE TOP SCH ×3 (08:53→20:51)
[2018-11-29] MEDS ORDERED: POTASSIUM CHLORIDE (SR) 20 MEQ TAB PO SCH (09:00)
[2018-11-29] MEDS: OXYBUTYNIN (XL) 5 MG TAB PO SCH (10:04)
[2018-11-29] MEDS: ASPIRIN (EC) 81 MG TAB PO SCH (10:04)
[2018-11-29] MEDS: LOSARTAN 50 MG TAB PO SCH ×2 (10:04→20:37)
[2018-11-29] MEDS: ESCITALOPRAM 10 MG TAB PO SCH (10:04)
[2018-11-29] MEDS: SPIRONOLACTONE 25 MG TAB PO SCH (10:05)
[2018-11-29] MEDS: DONEPEZIL 10 MG TAB PO SCH (10:05)
[2018-11-29] MEDS: MEMANTINE 10 MG TAB PO SCH (10:05)
[2018-11-29] MEDS: APIXABAN 5 MG TABLET PO SCH ×2 (10:07→20:37)
[2018-11-29 11:41] VITALS: BP 149/63; PULSE 60; RESP 19
[2018-11-29 15:16] VITALS: BP 118/56; PULSE 60; RESP 20
[2018-11-29 20:00] VITALS: BP 110/52; PULSE 60; RESP 18
[2018-11-29] MEDS: FAMOTIDINE 20 MG INJ IV SCH (20:37)
[2018-11-29] MEDS ORDERED: INSULIN ASPART [NOVOLOG] 3 ML PEN SC ONE ×2 (21:10→23:15)
[2018-11-29] MEDS: INSULIN GLARGINE [LANTus] (100 UNITS/ML) SYG SC SCH (21:16)
[2018-11-29] MEDS ORDERED: ACCU-CHEK XX ONE (21:30)
[2018-11-30] VITALS (8 sets, daily range): BP systolic 119–137; BP diastolic 57–73; PULSE 58–78; RESP 16–20
[2018-11-30] MEDS ORDERED: ACCU-CHEK XX ONE (01:30)
[2018-11-30] MEDS: ACCU-CHEK XX SCH (01:36)
[2018-11-30] MEDS: INSULIN ASPART [NOVOLOG] 3 ML PEN SC SCH ×7 (01:42→20:29)
[2018-11-30] MEDS: FUROSEMIDE 20 MG INJ IV SCH ×3 (05:43→21:32)
[2018-11-30] MEDS: LEVOTHYROXINE 75 MCG TAB PO SCH (07:20)
[2018-11-30] MEDS: FAMOTIDINE 20 MG INJ IV SCH (08:21)
[2018-11-30] MEDS: ESCITALOPRAM 10 MG TAB PO SCH (08:22)
[2018-11-30] MEDS: OXYBUTYNIN (XL) 5 MG TAB PO SCH (08:23)
[2018-11-30] MEDS: APIXABAN 5 MG TABLET PO SCH ×2 (08:23→20:16)
[2018-11-30] MEDS: SPIRONOLACTONE 25 MG TAB PO SCH (08:24)
[2018-11-30] MEDS: METOPROLOL (XL) 50 MG TAB PO SCH ×2 (08:24→20:16)
[2018-11-30] MEDS: DONEPEZIL 10 MG TAB PO SCH (08:24)
[2018-11-30] MEDS: MEMANTINE 10 MG TAB PO SCH (08:25)
[2018-11-30] MEDS: LOSARTAN 50 MG TAB PO SCH ×2 (08:25→20:17)
[2018-11-30] MEDS: BALSAM PERU/CASTOR OIL 60 GM TUBE TOP SCH ×3 (08:25→20:17)
[2018-11-30] MEDS: ASPIRIN (EC) 81 MG TAB PO SCH (08:25)
[2018-11-30] MEDS: INSULIN GLARGINE [LANTus] (100 UNITS/ML) SYG SC SCH (20:29)
[2018-12-01] MEDS: INSULIN ASPART [NOVOLOG] 3 ML PEN SC SCH ×9 (00:36→21:00)
[2018-12-01] MEDS: ACCU-CHEK XX SCH (00:37)
[2018-12-01 03:06] VITALS: BP 122/58; PULSE 61; RESP 17
[2018-12-01] MEDS: FUROSEMIDE 20 MG INJ IV SCH ×2 (05:37→15:05)
[2018-12-01] MEDS: LEVOTHYROXINE 75 MCG TAB PO SCH (06:41)
[2018-12-01 07:19] VITALS: BP 137/65; PULSE 60; RESP 18
[2018-12-01] MEDS: ESCITALOPRAM 10 MG TAB PO SCH (08:44)
[2018-12-01] MEDS: ASPIRIN (EC) 81 MG TAB PO SCH (08:44)
[2018-12-01] MEDS: MEMANTINE 10 MG TAB PO SCH (08:44)
[2018-12-01] MEDS: DONEPEZIL 10 MG TAB PO SCH (08:45)
[2018-12-01] MEDS: APIXABAN 5 MG TABLET PO SCH ×2 (08:45→21:01)
[2018-12-01] MEDS: LOSARTAN 50 MG TAB PO SCH ×2 (08:45→21:01)
[2018-12-01] MEDS: SPIRONOLACTONE 25 MG TAB PO SCH (08:45)
[2018-12-01] MEDS: OXYBUTYNIN (XL) 5 MG TAB PO SCH (08:45)
[2018-12-01] MEDS: METOPROLOL (XL) 50 MG TAB PO SCH (09:23)
[2018-12-01] MEDS: BALSAM PERU/CASTOR OIL 60 GM TUBE TOP SCH ×3 (15:05→21:02)
[2018-12-01] MEDS ORDERED: MAGNESIUM SULFATE 2 GM/50 ML 50 ML IVPB ONE (15:30)
[2018-12-01 15:38] VITALS: BP 120/54; PULSE 60; RESP 19
[2018-12-01] MEDS ORDERED: ACETAZOLAMIDE 500 MG INJ IV ONE (18:00)
[2018-12-01 19:45] VITALS: BP 118/54; PULSE 61; RESP 18
[2018-12-01] MEDS: INSULIN GLARGINE [LANTus] (100 UNITS/ML) SYG SC SCH (23:21)
[2018-12-02 00:34] VITALS: BP 111/66; PULSE 59; RESP 16
[2018-12-02] MEDS: INSULIN ASPART [NOVOLOG] 3 ML PEN SC SCH ×9 (01:00→22:38)
[2018-12-02] MEDS: ACCU-CHEK XX SCH (02:00)
[2018-12-02 04:03] VITALS: BP 116/55; PULSE 60; RESP 18
[2018-12-02] MEDS: LEVOTHYROXINE 75 MCG TAB PO SCH (06:26)
[2018-12-02 07:15] VITALS: BP 126/61; PULSE 58; RESP 18
[2018-12-02] MEDS: DONEPEZIL 10 MG TAB PO SCH (08:21)
[2018-12-02] MEDS: ESCITALOPRAM 10 MG TAB PO SCH (08:21)
[2018-12-02] MEDS: LOSARTAN 50 MG TAB PO SCH ×2 (08:21→20:47)
[2018-12-02] MEDS: APIXABAN 5 MG TABLET PO SCH ×2 (08:21→20:47)
[2018-12-02] MEDS: SPIRONOLACTONE 25 MG TAB PO SCH (08:22)
[2018-12-02] MEDS: MEMANTINE 10 MG TAB PO SCH (08:22)
[2018-12-02] MEDS: ASPIRIN (EC) 81 MG TAB PO SCH (08:22)
[2018-12-02] MEDS: FUROSEMIDE 20 MG INJ IV SCH ×3 (08:46→20:48)
[2018-12-02] MEDS: OXYBUTYNIN (XL) 5 MG TAB PO SCH (08:47)
[2018-12-02] MEDS: BALSAM PERU/CASTOR OIL 60 GM TUBE TOP SCH ×3 (08:48→20:49)
[2018-12-02 11:58] VITALS: BP 101/51; PULSE 61; RESP 18
[2018-12-02 15:20] VITALS: BP 127/59; PULSE 60; RESP 20
[2018-12-02] MEDS ORDERED: ACETAZOLAMIDE 500 MG INJ IV ONE (18:30)
[2018-12-02] MEDS: POTASSIUM CHLORIDE 100 ML IVPB SCH ×2 (19:37→22:44)
[2018-12-02 19:56] VITALS: BP 130/60; PULSE 60; RESP 20
[2018-12-02] MEDS: MIRTAZAPINE 15 MG TAB PO SCH (20:47)
[2018-12-02] MEDS: INSULIN GLARGINE [LANTus] (100 UNITS/ML) SYG SC SCH (22:37)
[2018-12-03] VITALS: BP 101/54; PULSE 60; RESP 20
[2018-12-03] MEDS: INSULIN ASPART [NOVOLOG] 3 ML PEN SC SCH ×9 (01:20→21:00)
[2018-12-03] MEDS: ACCU-CHEK XX SCH (02:00)
[2018-12-03 04:00] VITALS: BP 103/51; PULSE 60; RESP 20
[2018-12-03] MEDS: LEVOTHYROXINE 75 MCG TAB PO SCH (06:42)
[2018-12-03 07:28] VITALS: BP 103/53; PULSE 63; RESP 18
[2018-12-03] MEDS: MIRTAZAPINE 15 MG TAB PO SCH ×2 (09:00→21:00)
[2018-12-03] MEDS: APIXABAN 5 MG TABLET PO SCH ×2 (10:48→21:00)
[2018-12-03] MEDS: FUROSEMIDE 20 MG INJ IV SCH (10:48)
[2018-12-03] MEDS: OXYBUTYNIN (XL) 5 MG TAB PO SCH (10:49)
[2018-12-03] MEDS: SPIRONOLACTONE 25 MG TAB PO SCH (10:49)
[2018-12-03] MEDS: MEMANTINE 10 MG TAB PO SCH (10:49)
[2018-12-03] MEDS: ASPIRIN (EC) 81 MG TAB PO SCH (10:50)
[2018-12-03] MEDS: DONEPEZIL 10 MG TAB PO SCH (10:50)
[2018-12-03] MEDS: ESCITALOPRAM 10 MG TAB PO SCH (10:50)
[2018-12-03] MEDS: LOSARTAN 50 MG TAB PO SCH ×2 (10:50→21:00)
[2018-12-03] MEDS: BALSAM PERU/CASTOR OIL 60 GM TUBE TOP SCH ×3 (10:51→21:03)
[2018-12-03 11:37] VITALS: BP 110/53; PULSE 59; RESP 18
[2018-12-03] MEDS ORDERED: SOD CHLORIDE 0.9% 250 ML IV ONE (14:30)
[2018-12-03 15:48] VITALS: BP 109/52; PULSE 60; RESP 20
[2018-12-03] MEDS: DEXTROSE 50% 50 ML SYRINGE IV PRN (18:43)
[2018-12-03] MEDS: SOD CHLORIDE 0.9% 1,000 ML IV SCH (18:50)
[2018-12-03 20:00] VITALS: BP 109/59; PULSE 70; RESP 18
[2018-12-04] VITALS (7 sets, daily range): BP systolic 131–153; BP diastolic 62–100; PULSE 52–70; RESP 18–19
[2018-12-04] MEDS: INSULIN ASPART [NOVOLOG] 3 ML PEN SC SCH ×9 (01:00→21:00)
[2018-12-04] MEDS: ACCU-CHEK XX SCH (02:00)
[2018-12-04] MEDS: LEVOTHYROXINE 75 MCG TAB PO SCH (08:20)
[2018-12-04] MEDS: ASPIRIN (EC) 81 MG TAB PO SCH (08:23)
[2018-12-04] MEDS: APIXABAN 5 MG TABLET PO SCH ×2 (08:23→21:08)
[2018-12-04] MEDS: OXYBUTYNIN (XL) 5 MG TAB PO SCH (08:23)
[2018-12-04] MEDS: MIRTAZAPINE 15 MG TAB PO SCH ×2 (08:24→21:07)
[2018-12-04] MEDS: DONEPEZIL 10 MG TAB PO SCH (08:24)
[2018-12-04] MEDS: MEMANTINE 10 MG TAB PO SCH (08:24)
[2018-12-04] MEDS: ESCITALOPRAM 10 MG TAB PO SCH (08:24)
[2018-12-04] MEDS: LOSARTAN 50 MG TAB PO SCH ×2 (08:25→21:09)
[2018-12-04] MEDS: BALSAM PERU/CASTOR OIL 60 GM TUBE TOP SCH ×3 (08:26→21:19)
[2018-12-04] MEDS: SOD CHLORIDE 0.9% 1,000 ML IV SCH (17:14)
[2018-12-04] MEDS: INSULIN GLARGINE [LANTus] (100 UNITS/ML) SYG SC SCH (22:19)
[2018-12-05] MEDS: INSULIN ASPART [NOVOLOG] 3 ML PEN SC SCH ×9 (01:00→21:33)
[2018-12-05] MEDS: ACCU-CHEK XX SCH (02:00)
[2018-12-05 03:47] VITALS: BP 132/73; PULSE 60; RESP 18
[2018-12-05] MEDS: LEVOTHYROXINE 75 MCG TAB PO SCH (07:47)
[2018-12-05] MEDS: FUROSEMIDE 20 MG INJ IV SCH ×2 (07:58→21:14)
[2018-12-05 08:15] VITALS: BP 132/54; PULSE 60; RESP 18
[2018-12-05] MEDS: ESCITALOPRAM 10 MG TAB PO SCH (08:42)
[2018-12-05] MEDS: APIXABAN 5 MG TABLET PO SCH ×2 (08:43→21:13)
[2018-12-05] MEDS: MIRTAZAPINE 15 MG TAB PO SCH ×2 (08:43→21:12)
[2018-12-05] MEDS: ASPIRIN (EC) 81 MG TAB PO SCH (08:43)
[2018-12-05] MEDS: DONEPEZIL 10 MG TAB PO SCH (08:43)
[2018-12-05] MEDS: OXYBUTYNIN (XL) 5 MG TAB PO SCH (08:43)
[2018-12-05] MEDS: MEMANTINE 10 MG TAB PO SCH (08:44)
[2018-12-05] MEDS: LOSARTAN 50 MG TAB PO SCH ×2 (08:45→21:13)
[2018-12-05] MEDS: BALSAM PERU/CASTOR OIL 60 GM TUBE TOP SCH ×3 (08:48→21:58)
[2018-12-05 10:57] VITALS: BP 115/56; PULSE 60; RESP 18
[2018-12-05 15:52] VITALS: BP 129/60; PULSE 61; RESP 18
[2018-12-05] MEDS: SOD CHLORIDE 0.9% 1,000 ML IV SCH (16:31)
[2018-12-05 18:53] VITALS: BP 108/53; PULSE 60; RESP 18
[2018-12-05] MEDS: INSULIN GLARGINE [LANTus] (100 UNITS/ML) SYG SC SCH (21:33)
[2018-12-05 23:31] VITALS: BP 127/55; PULSE 59; RESP 18
[2018-12-06] VITALS (7 sets, daily range): BP systolic 103–157; BP diastolic 51–73; PULSE 52–109; RESP 18–20
[2018-12-06] MEDS: INSULIN ASPART [NOVOLOG] 3 ML PEN SC SCH ×8 (01:00→17:50)
[2018-12-06] MEDS: ACCU-CHEK XX SCH (02:02)
[2018-12-06] MEDS: LEVOTHYROXINE 75 MCG TAB PO SCH (06:29)
[2018-12-06] MEDS: ESCITALOPRAM 10 MG TAB PO SCH (08:47)
[2018-12-06] MEDS: ASPIRIN (EC) 81 MG TAB PO SCH (08:47)
[2018-12-06] MEDS: MIRTAZAPINE 15 MG TAB PO SCH ×2 (08:48→21:08)
[2018-12-06] MEDS: DONEPEZIL 10 MG TAB PO SCH (08:48)
[2018-12-06] MEDS: MEMANTINE 10 MG TAB PO SCH (08:48)
[2018-12-06] MEDS: APIXABAN 5 MG TABLET PO SCH ×2 (08:48→21:07)
[2018-12-06] MEDS: OXYBUTYNIN (XL) 5 MG TAB PO SCH (08:48)
[2018-12-06] MEDS: LOSARTAN 50 MG TAB PO SCH ×2 (08:48→21:07)
[2018-12-06] MEDS: FUROSEMIDE 20 MG INJ IV SCH ×2 (08:50→21:06)
[2018-12-06] MEDS: BALSAM PERU/CASTOR OIL 60 GM TUBE TOP SCH ×3 (08:50→21:14)
[2018-12-06] MEDS: MAGNESIUM HYDROXIDE 30ML CUP PO PRN (12:36)
[2018-12-06] MEDS ORDERED: INSULIN ASPART [NOVOLOG] 3 ML PEN SC SCH (17:30)
[2018-12-06] MEDS: Insulin NOVOLOG SS MILD Algorithm (SS with meals and bedtime) SC SCH ×2 (17:49→21:00)
[2018-12-06] MEDS ORDERED: LOSARTAN 50 MG TAB PO SCH (21:00)
[2018-12-06] MEDS: INSULIN GLARGINE [LANTus] (100 UNITS/ML) SYG SC SCH (21:26)
[2018-12-07] MEDS: ACCU-CHEK XX SCH (01:49)
[2018-12-07 03:09] VITALS: BP 119/60; PULSE 63; RESP 18
[2018-12-07] MEDS: LEVOTHYROXINE 75 MCG TAB PO SCH (06:41)
[2018-12-07] MEDS: Insulin NOVOLOG SS MILD Algorithm (SS with meals and bedtime) SC SCH ×4 (06:41→20:56)
[2018-12-07 07:41] VITALS: BP 130/60; PULSE 60; RESP 18
[2018-12-07] MEDS: INSULIN ASPART [NOVOLOG] 3 ML PEN SC SCH ×3 (08:11→17:36)
[2018-12-07] MEDS: APIXABAN 5 MG TABLET PO SCH ×2 (09:40→20:30)
[2018-12-07] MEDS: FUROSEMIDE 20 MG INJ IV SCH ×2 (09:40→20:24)
[2018-12-07] MEDS: DONEPEZIL 10 MG TAB PO SCH (09:40)
[2018-12-07] MEDS: MEMANTINE 10 MG TAB PO SCH (09:41)
[2018-12-07] MEDS: LOSARTAN 50 MG TAB PO SCH ×2 (09:41→20:33)
[2018-12-07] MEDS: ASPIRIN (EC) 81 MG TAB PO SCH (09:42)
[2018-12-07] MEDS: MIRTAZAPINE 15 MG TAB PO SCH ×2 (09:42→20:34)
[2018-12-07] MEDS: BALSAM PERU/CASTOR OIL 60 GM TUBE TOP SCH ×3 (09:43→20:36)
[2018-12-07] MEDS: OXYBUTYNIN (XL) 5 MG TAB PO SCH (10:18)
[2018-12-07] MEDS: ESCITALOPRAM 20 MG TAB PO SCH (10:21)
[2018-12-07 11:08] VITALS: BP 125/56; PULSE 60; RESP 18
[2018-12-07 15:16] VITALS: BP 92/46; PULSE 57; RESP 18
[2018-12-07 20:25] VITALS: BP 117/56; PULSE 61; RESP 18
[2018-12-07] MEDS: INSULIN GLARGINE [LANTus] (100 UNITS/ML) SYG SC SCH (20:57)
[2018-12-07] MEDS ORDERED: ACCU-CHEK XX ONE (22:30)
[2018-12-07] MEDS ORDERED: INSULIN ASPART [NOVOLOG] 3 ML PEN SC ONE (22:30)
[2018-12-08 00:26] VITALS: BP 131/63; PULSE 66; RESP 16
[2018-12-08] MEDS ORDERED: INSULIN GLARGINE [LANTus] (100 UNITS/ML) SYG SC ONE (00:30)
[2018-12-08] MEDS: ACCU-CHEK XX SCH (02:47)
[2018-12-08 03:45] VITALS: BP 152/62; PULSE 59; RESP 16
[2018-12-08] MEDS: LEVOTHYROXINE 75 MCG TAB PO SCH (06:47)
[2018-12-08 07:19] VITALS: BP 148/64; PULSE 60; RESP 17
[2018-12-08] MEDS: Insulin NOVOLOG SS MILD Algorithm (SS with meals and bedtime) SC SCH ×4 (07:50→20:24)
[2018-12-08] MEDS: INSULIN ASPART [NOVOLOG] 3 ML PEN SC SCH ×3 (07:51→17:29)
[2018-12-08] MEDS: FUROSEMIDE 20 MG INJ IV SCH (07:54)
[2018-12-08] MEDS: ASPIRIN (EC) 81 MG TAB PO SCH (08:18)
[2018-12-08] MEDS: APIXABAN 5 MG TABLET PO SCH ×2 (08:18→20:16)
[2018-12-08] MEDS: MEMANTINE 10 MG TAB PO SCH (08:18)
[2018-12-08] MEDS: DONEPEZIL 10 MG TAB PO SCH (08:18)
[2018-12-08] MEDS: OXYBUTYNIN (XL) 5 MG TAB PO SCH (08:18)
[2018-12-08] MEDS: MIRTAZAPINE 15 MG TAB PO SCH ×2 (08:19→20:16)
[2018-12-08] MEDS: ESCITALOPRAM 20 MG TAB PO SCH (08:19)
[2018-12-08] MEDS: LOSARTAN 50 MG TAB PO SCH ×2 (08:20→20:15)
[2018-12-08] MEDS: BALSAM PERU/CASTOR OIL 60 GM TUBE TOP SCH ×3 (08:22→21:55)
[2018-12-08 11:18] VITALS: BP 104/51; PULSE 62; RESP 20
[2018-12-08 15:27] VITALS: BP 115/55; PULSE 61; RESP 20
[2018-12-08 19:18] VITALS: BP 96/49; PULSE 62; RESP 20
[2018-12-08] MEDS: INSULIN GLARGINE [LANTus] (100 UNITS/ML) SYG SC SCH (20:24)
[2018-12-09 00:28] VITALS: BP 126/62; PULSE 60; RESP 20
[2018-12-09] MEDS: ACCU-CHEK XX SCH (02:49)
[2018-12-09 04:15] VITALS: BP 157/68; PULSE 61; RESP 20
[2018-12-09] MEDS: LEVOTHYROXINE 75 MCG TAB PO SCH (06:45)
[2018-12-09] MEDS: Insulin NOVOLOG SS MILD Algorithm (SS with meals and bedtime) SC SCH ×4 (07:00→20:33)
[2018-12-09 07:19] VITALS: BP 162/74; PULSE 65; RESP 17
[2018-12-09] MEDS: INSULIN ASPART [NOVOLOG] 3 ML PEN SC SCH ×3 (07:39→17:42)
[2018-12-09] MEDS: LOSARTAN 50 MG TAB PO SCH ×2 (08:34→20:22)
[2018-12-09] MEDS: FUROSEMIDE 40 MG TAB PO SCH (08:35)
[2018-12-09] MEDS: ESCITALOPRAM 20 MG TAB PO SCH (08:35)
[2018-12-09] MEDS: OXYBUTYNIN (XL) 5 MG TAB PO SCH (08:35)
[2018-12-09] MEDS: DONEPEZIL 10 MG TAB PO SCH (08:35)
[2018-12-09] MEDS: MEMANTINE 10 MG TAB PO SCH (08:35)
[2018-12-09] MEDS: ASPIRIN (EC) 81 MG TAB PO SCH (08:35)
[2018-12-09] MEDS: MIRTAZAPINE 15 MG TAB PO SCH ×2 (08:37→20:23)
[2018-12-09] MEDS: APIXABAN 5 MG TABLET PO SCH ×2 (08:37→20:23)
[2018-12-09] MEDS: BALSAM PERU/CASTOR OIL 60 GM TUBE TOP SCH ×3 (08:38→20:24)
[2018-12-09 11:59] VITALS: BP 152/68; PULSE 78; RESP 18
[2018-12-09 16:05] VITALS: BP 119/53; PULSE 53; RESP 18
[2018-12-09 20:02] VITALS: BP 112/54; PULSE 61; RESP 16
[2018-12-09] MEDS: INSULIN GLARGINE [LANTus] (100 UNITS/ML) SYG SC SCH (20:33)
[2018-12-10 00:18] VITALS: BP 110/58; PULSE 68; RESP 16
[2018-12-10] MEDS: ACCU-CHEK XX SCH (01:16)
[2018-12-10 04:29] VITALS: BP 140/59; PULSE 60; RESP 18
[2018-12-10] MEDS: LEVOTHYROXINE 75 MCG TAB PO SCH (06:19)
[2018-12-10 07:11] VITALS: BP 162/71; PULSE 57; RESP 17
[2018-12-10] MEDS: INSULIN ASPART [NOVOLOG] 3 ML PEN SC SCH ×3 (08:02→16:45)
[2018-12-10] MEDS: Insulin NOVOLOG SS MILD Algorithm (SS with meals and bedtime) SC SCH ×4 (08:03→21:54)
[2018-12-10] MEDS: OXYBUTYNIN (XL) 5 MG TAB PO SCH (09:37)
[2018-12-10] MEDS: MEMANTINE 10 MG TAB PO SCH (09:37)
[2018-12-10] MEDS: LOSARTAN 50 MG TAB PO SCH ×2 (09:38→21:31)
[2018-12-10] MEDS: ESCITALOPRAM 20 MG TAB PO SCH (09:38)
[2018-12-10] MEDS: DONEPEZIL 10 MG TAB PO SCH (09:38)
[2018-12-10] MEDS: MIRTAZAPINE 15 MG TAB PO SCH ×2 (09:38→21:33)
[2018-12-10] MEDS: FUROSEMIDE 40 MG TAB PO SCH (09:38)
[2018-12-10] MEDS: ASPIRIN (EC) 81 MG TAB PO SCH (09:38)
[2018-12-10] MEDS: APIXABAN 5 MG TABLET PO SCH ×2 (09:40→21:33)
[2018-12-10] MEDS: BALSAM PERU/CASTOR OIL 60 GM TUBE TOP SCH ×3 (09:40→22:21)
[2018-12-10 11:40] VITALS: BP 133/62; PULSE 58; RESP 17
[2018-12-10 15:31] VITALS: BP 129/69; PULSE 61; RESP 18
[2018-12-10 20:47] VITALS: BP 130/60; PULSE 67; RESP 18
[2018-12-10] MEDS: INSULIN GLARGINE [LANTus] (100 UNITS/ML) SYG SC SCH (21:55)
[2018-12-11 00:25] VITALS: BP 128/62; PULSE 68; RESP 18
[2018-12-11] MEDS: ACCU-CHEK XX SCH (02:31)
[2018-12-11 04:19] VITALS: BP 133/56; PULSE 63; RESP 16
[2018-12-11] MEDS: LEVOTHYROXINE 75 MCG TAB PO SCH (06:06)
[2018-12-11 07:42] VITALS: BP 149/68; PULSE 65; RESP 18
[2018-12-11] MEDS: Insulin NOVOLOG SS MILD Algorithm (SS with meals and bedtime) SC SCH ×4 (07:51→20:33)
[2018-12-11] MEDS: INSULIN ASPART [NOVOLOG] 3 ML PEN SC SCH ×3 (07:54→17:37)
[2018-12-11] MEDS: MEMANTINE 10 MG TAB PO SCH (08:13)
[2018-12-11] MEDS: DONEPEZIL 10 MG TAB PO SCH (08:13)
[2018-12-11] MEDS: APIXABAN 5 MG TABLET PO SCH ×2 (08:13→20:34)
[2018-12-11] MEDS: ASPIRIN (EC) 81 MG TAB PO SCH (08:14)
[2018-12-11] MEDS: ESCITALOPRAM 20 MG TAB PO SCH (08:14)
[2018-12-11] MEDS: MIRTAZAPINE 15 MG TAB PO SCH ×2 (08:14→20:37)
[2018-12-11] MEDS: OXYBUTYNIN (XL) 5 MG TAB PO SCH (08:14)
[2018-12-11] MEDS: LOSARTAN 50 MG TAB PO SCH ×2 (08:16→20:34)
[2018-12-11] MEDS: FUROSEMIDE 40 MG TAB PO SCH (08:16)
[2018-12-11] MEDS: BALSAM PERU/CASTOR OIL 60 GM TUBE TOP SCH ×3 (08:19→20:37)
[2018-12-11 11:46] VITALS: BP 138/67; PULSE 67; RESP 18
[2018-12-11 15:50] VITALS: BP 135/63; PULSE 67; RESP 18
[2018-12-11 19:24] VITALS: BP 143/60; PULSE 64; RESP 17
[2018-12-11] MEDS: INSULIN GLARGINE [LANTus] (100 UNITS/ML) SYG SC SCH (20:59)
[2018-12-12 00:05] VITALS: BP 113/52; PULSE 63; RESP 17
[2018-12-12] MEDS: ACCU-CHEK XX SCH (02:00)
[2018-12-12 03:47] VITALS: BP 126/60; PULSE 60; RESP 18
[2018-12-12] MEDS: LEVOTHYROXINE 75 MCG TAB PO SCH (05:42)
[2018-12-12] MEDS: Insulin NOVOLOG SS MILD Algorithm (SS with meals and bedtime) SC SCH ×4 (07:00→21:00)
[2018-12-12 07:34] VITALS: BP 128/70; PULSE 65; RESP 18
[2018-12-12] MEDS: INSULIN ASPART [NOVOLOG] 3 ML PEN SC SCH ×3 (07:41→17:22)
[2018-12-12] MEDS: MEMANTINE 10 MG TAB PO SCH (08:27)
[2018-12-12] MEDS: APIXABAN 5 MG TABLET PO SCH ×2 (08:27→20:36)
[2018-12-12] MEDS: OXYBUTYNIN (XL) 5 MG TAB PO SCH (08:27)
[2018-12-12] MEDS: ASPIRIN (EC) 81 MG TAB PO SCH (08:28)
[2018-12-12] MEDS: ESCITALOPRAM 20 MG TAB PO SCH (08:28)
[2018-12-12] MEDS: MIRTAZAPINE 15 MG TAB PO SCH ×2 (08:28→20:37)
[2018-12-12] MEDS: DONEPEZIL 10 MG TAB PO SCH (08:28)
[2018-12-12] MEDS: FUROSEMIDE 40 MG TAB PO SCH (08:29)
[2018-12-12] MEDS: LOSARTAN 50 MG TAB PO SCH ×2 (08:29→20:36)
[2018-12-12] MEDS: BALSAM PERU/CASTOR OIL 60 GM TUBE TOP SCH ×3 (08:38→21:36)
[2018-12-12 12:19] VITALS: BP 131/73; PULSE 70
[2018-12-12 16:16] VITALS: BP 119/55; PULSE 68; RESP 18
[2018-12-12 20:00] VITALS: BP 106/67; PULSE 63; RESP 18
[2018-12-12] MEDS: INSULIN GLARGINE [LANTus] (100 UNITS/ML) SYG SC SCH (21:00)
[2018-12-13] VITALS (7 sets, daily range): BP systolic 120–152; BP diastolic 6–70; PULSE 60–87; RESP 16–22
[2018-12-13] MEDS: ACCU-CHEK XX SCH (02:00)
[2018-12-13] MEDS: LEVOTHYROXINE 75 MCG TAB PO SCH (06:19)
[2018-12-13] MEDS: Insulin NOVOLOG SS MILD Algorithm (SS with meals and bedtime) SC SCH ×4 (07:53→21:30)
[2018-12-13] MEDS: INSULIN ASPART [NOVOLOG] 3 ML PEN SC SCH ×3 (07:54→17:34)
[2018-12-13] MEDS: MULTIVITAMINS 30 ML CUP PO SCH (08:19)
[2018-12-13] MEDS: DONEPEZIL 10 MG TAB PO SCH (08:19)
[2018-12-13] MEDS: OXYBUTYNIN (XL) 5 MG TAB PO SCH (08:19)
[2018-12-13] MEDS: FUROSEMIDE 40 MG TAB PO SCH (08:20)
[2018-12-13] MEDS: MIRTAZAPINE 15 MG TAB PO SCH ×2 (08:20→23:21)
[2018-12-13] MEDS: ESCITALOPRAM 20 MG TAB PO SCH (08:20)
[2018-12-13] MEDS: ASPIRIN (EC) 81 MG TAB PO SCH (08:21)
[2018-12-13] MEDS: LOSARTAN 50 MG TAB PO SCH ×2 (08:21→21:19)
[2018-12-13] MEDS: MEMANTINE 10 MG TAB PO SCH (08:21)
[2018-12-13] MEDS: APIXABAN 5 MG TABLET PO SCH ×2 (08:21→21:18)
[2018-12-13] MEDS: BALSAM PERU/CASTOR OIL 60 GM TUBE TOP SCH ×3 (08:22→21:20)
[2018-12-13] MEDS: MAGNESIUM HYDROXIDE 30ML CUP PO PRN (13:17)
[2018-12-13] MEDS ORDERED: INSULIN GLARGINE [LANTus] (100 UNITS/ML) SYG SC ONE (18:00)
[2018-12-13] MEDS: ACETAMINOPHEN 325 MG TAB PO PRN (18:32)
[2018-12-13] MEDS ORDERED: INSULIN ASPART [NOVOLOG] 3 ML PEN SC ONE (19:00)
[2018-12-13] MEDS ORDERED: ACCU-CHEK XX ONE (19:30)
[2018-12-13] MEDS: INSULIN GLARGINE [LANTus] (100 UNITS/ML) SYG SC SCH (23:22)
[2018-12-14] MEDS: ACCU-CHEK XX SCH (02:00)
[2018-12-14 02:23] VITALS: BP 111/54; PULSE 60; RESP 17
[2018-12-14] MEDS: DEXTROSE 50% 50 ML SYRINGE IV PRN (02:26)
[2018-12-14] MEDS: LEVOTHYROXINE 75 MCG TAB PO SCH (06:30)
[2018-12-14] MEDS: Insulin NOVOLOG SS MILD Algorithm (SS with meals and bedtime) SC SCH ×4 (07:30→20:26)
[2018-12-14] MEDS: INSULIN ASPART [NOVOLOG] 3 ML PEN SC SCH ×3 (07:35→17:20)
[2018-12-14 07:54] VITALS: BP 162/70; PULSE 71; RESP 16
[2018-12-14] MEDS: MULTIVITAMINS 30 ML CUP PO SCH (08:38)
[2018-12-14] MEDS: MEMANTINE 10 MG TAB PO SCH (08:38)
[2018-12-14] MEDS: DONEPEZIL 10 MG TAB PO SCH (08:38)
[2018-12-14] MEDS: ASPIRIN (EC) 81 MG TAB PO SCH (08:38)
[2018-12-14] MEDS: ESCITALOPRAM 20 MG TAB PO SCH (08:39)
[2018-12-14] MEDS: OXYBUTYNIN (XL) 5 MG TAB PO SCH (08:39)
[2018-12-14] MEDS: LOSARTAN 50 MG TAB PO SCH ×2 (08:40→20:31)
[2018-12-14] MEDS: APIXABAN 5 MG TABLET PO SCH ×2 (08:40→20:32)
[2018-12-14] MEDS: MIRTAZAPINE 15 MG TAB PO SCH ×2 (08:41→20:30)
[2018-12-14] MEDS: FUROSEMIDE 40 MG TAB PO SCH (08:41)
[2018-12-14] MEDS: BALSAM PERU/CASTOR OIL 60 GM TUBE TOP SCH ×5 (08:42→20:33)
[2018-12-14 11:11] VITALS: BP 137/70; PULSE 70
[2018-12-14 14:14] VITALS: BP 121/58; PULSE 60; RESP 18
[2018-12-14 19:56] VITALS: BP 120/57; PULSE 60; RESP 16
[2018-12-14] MEDS: INSULIN GLARGINE [LANTus] (100 UNITS/ML) SYG SC SCH (20:29)
[2018-12-15] MEDS: ACCU-CHEK XX SCH (01:15)
[2018-12-15 02:20] VITALS: BP 120/59; PULSE 60; RESP 16
[2018-12-15] MEDS: LEVOTHYROXINE 75 MCG TAB PO SCH (06:06)
[2018-12-15 08:00] VITALS: BP 130/58; PULSE 62; RESP 16
[2018-12-15] MEDS: INSULIN ASPART [NOVOLOG] 3 ML PEN SC SCH ×2 (08:18→12:03)
[2018-12-15] MEDS: Insulin NOVOLOG SS MILD Algorithm (SS with meals and bedtime) SC SCH ×2 (08:19→12:04)
[2018-12-15] MEDS: MIRTAZAPINE 15 MG TAB PO SCH (09:04)
[2018-12-15] MEDS: MEMANTINE 10 MG TAB PO SCH (09:04)
[2018-12-15] MEDS: DONEPEZIL 10 MG TAB PO SCH (09:04)
[2018-12-15] MEDS: FUROSEMIDE 40 MG TAB PO SCH (09:04)
[2018-12-15] MEDS: ESCITALOPRAM 20 MG TAB PO SCH (09:04)
[2018-12-15] MEDS: OXYBUTYNIN (XL) 5 MG TAB PO SCH (09:05)
[2018-12-15] MEDS: LOSARTAN 50 MG TAB PO SCH (09:05)
[2018-12-15] MEDS: ASPIRIN (EC) 81 MG TAB PO SCH (09:05)
[2018-12-15] MEDS: APIXABAN 5 MG TABLET PO SCH (09:05)
[2018-12-15] MEDS: MULTIVITAMINS 30 ML CUP PO SCH (09:06)
[2018-12-15] MEDS: BALSAM PERU/CASTOR OIL 60 GM TUBE TOP SCH ×2 (09:06)
[2018-12-15 14:00] VITALS: BP 110/53; PULSE 64; RESP 16
[2018-12-15] MEDS ORDERED: hydrALAzine 20 MG INJ IV ONE (16:30)
== END 2018-12-15 16:30 | disposition hospice, inpatient (51) | DRG 291 ==
LOC: E/R 08:50 → 6WM 11:10 → PP2 12-13 22:39
PROVIDERS: ADMIT Internal Medicine; ATTEND Internal Medicine
PROC: 5A09357 Assistance with Respiratory Ventilation, Less than 24 Consecutive Hours, Continuous Positive Airway Pressure (ICD-10-PCS; principal; 2018-11-26)
DX: I11.0 Hypertensive heart disease with heart failure (principal); J96.01 Acute respiratory failure with hypoxia; I44.2 Atrioventricular block, complete; E44.1 Mild protein-calorie malnutrition; I47.2 Ventricular tachycardia; I50.33 Acute on chronic diastolic (congestive) heart failure; D63.8 Anemia in other chronic diseases classified elsewhere; E11.9 Type 2 diabetes mellitus without complications; E78.5 Hyperlipidemia, unspecified; E03.9 Hypothyroidism, unspecified; E88.81 Metabolic syndrome and other insulin resistance; F03.90 Unspecified dementia, unspecified severity, without behavioral disturbance, psychotic disturbance, mood disturbance, and anxiety; I48.91 Unspecified atrial fibrillation; R62.7 Adult failure to thrive; R53.81 Other malaise; T40.2X5A Adverse effect of other opioids, initial encounter; Z66 Do not resuscitate; Z68.23 Body mass index [BMI] 23.0-23.9, adult; Z74.01 Bed confinement status; Z95.0 Presence of cardiac pacemaker; Z79.82 Long term (current) use of aspirin; Z79.4 Long term (current) use of insulin; Z79.01 Long term (current) use of anticoagulants
CPT/HCPCS: 36415; 71045; 76604; 80048; 80053; 80162; 82550; 82553; 82947; 82962; 83036; 83605; 83735; 83880; 84100; 84145; 84439; 84443; 84480; 84484; 85025; 85610; 85730; 92526; 92610; 93005; 93306; 93970; 94660; 96374; 97110; 97162; 97530; J1120; J1815; J1940; J2270; J3475; J3480; J7030; J7040